=== PATIENT | male | born 1980 | race Caucasian/White ===

== ENCOUNTER 2017-08-06 09:40 | Emergency (ER) | payer MEDICAID, SELFPAY ==
[2017-08-06 09:41] VITALS: BP 134/78; PULSE 73; RESP 16; TEMP 36.3; O2SAT 96; BMI 29.0
--- NOTE | 2017-08-06 10:00 | ED.VISSUMM ---
- ER Visit Summary Date of Service: 08/06/17 Chief Complaint: [] Back pain History of Present Illness: The patient is a 37 M [] complaining of back pain starting 3 months ago while sitting at a computer. Patient reports he felt a pop. Denies any injury in the last 3 months. Reports not reporting this to his PCP. He reports looking up his symptoms online and started doing physical therapy stretches and exercises which have minimally improved his symptoms. He reports taking [id number] NSAIDs without relief. He denies paresthesias down the lower extremity. Denies bowel/bladder incontinence. No other complaints at this time. Physical Examination: [] Mild paraspinal tenderness on the left side in the lumbosacral region. No midline step-off or deformity. Patient is able to ambulate without difficulty. Remainder of exam is unremarkable. Test Results: [] Lumbosacral x-rays: Emergency Department Course and Treatment: [] Patient given IM Toradol for analgesia. He was encouraged to follow-up with his PCP. He was provided with a prescription NSAID. Treatment Plan: [] Follow-up with PCP. Disposition: [] Discharge, stable. Impression: [] Low back pain This note was generated with [employer] dictation software. It may contain incorrect words, spelling, and punctuation that were not noted in review of the chart prior to signing ED Disposition - Plan for ED Patient: Chief Complaint: Back Referrals: Care Physician,No Primary [Primary Care Provider] -
[2017-08-06] MEDS: Ketorolac 15 MG/ML Vial IM (10:05)
--- NOTE | 2017-08-06 10:08 | RAD_ITS ---
STUDY: X-RAY - LUMBAR SPINE REASON FOR EXAM: Male, 37 years old. Chronic low back pain TECHNIQUE: 3 view(s) of the lumbar spine were obtained. COMPARISON: None FINDINGS: There is straightening of the normal lumbar lordosis. There is no substantial scoliosis. There is a normal alignment of the vertebrae. Normal vertebral bodies and endplates. Normal disc space heights. The soft tissue structures are unremarkable. RAD/Lumbar Spine 2 or 3 Views IMPRESSION: Straightening of the physiologic lordosis. This can be associated muscle spasm or pain. Electronically Signed: Jahaira Madrid MD at 10:58 EST Tel , Service support ,
--- NOTE | 2017-08-06 11:14 | ED.DEP ---
ED Disposition - Plan for ED Patient: Disposition: Home or Assisted Living Chief Complaint: Back Instructions: ED Sprain Strain Lumbar Prescriptions: Naproxen [Naprosyn] 500 mg PO BID PRN PRN #20 tab PRN Reason: Pain Referrals: Care Physician,No Primary [Primary Care Provider] -
[2017-08-06 11:37] VITALS: BP 118/79; PULSE 60; RESP 16; O2SAT 100
== END 2017-08-06 11:38 | disposition home or self-care (01) ==
PROVIDERS: Emergency Provider Emergency Medicine
DX: M54.5 Low back pain (principal); Z72.0 Tobacco use
CPT/HCPCS: 72100; 96372; 99282